=== PATIENT | male | born 1995 | race Caucasian/White ===

== ENCOUNTER 2017-09-06 02:07 | Observation (INO) | payer OTHER ==
[~2017-09-06] VITALS: Ht 177.8 cm; Wt 71.5 kg
[2017-09-06 06:02] VITALS: BP 116/55
[2017-09-06 07:37] VITALS: BP 111/53
[2017-09-06 07:43] LABS: HEMATOCRIT 39.5 % (38.0-50.0); HEMOGLOBIN 13.5 G/DL (12.5-16.6); MCH 30.5 PG (29.0-34.0); MCHC 34.2 G/DL (30.0-36.0); MCV 89.4 FL (86-99); PLATELET COUNT 256 K/uL (156-360); RBC DIS.WIDTH-CV 12.5 % (11.8-14.6); RBC DIS.WIDTH-SD 40.8 % (39-53); RED BLOOD COUNT 4.42 M/uL (4.00-5.50); WHITE BLOOD COUNT 15.1 K/uL (4.1-10.2)
[2017-09-06 08:21] LABS: CHLORIDE 105 MEQ/L (99-109); GFR ESTIMATE (CALCULATED) > 59 mL/min/ (58.99-99999); GLUCOSE 175 mg/dL (70-99); POTASSIUM 4.6 MEQ/L (3.7-5.4); SODIUM 139 MEQ/L (136-147); UREA NITROGEN (BUN) 14 mg/dL (9-23)
[2017-09-06] MEDS ORDERED: EPIPEN ADU0.3 MG/0.3 IM (11:26)
== END 2017-09-06 11:58 | disposition home or self-care (01) ==
LOC: EME 02:07 → EDOF 04:03 → ENRESERV 04:05 → CANRESERV 04:05 → ENRESERV 05:05 → EDOF 05:13 → ENRESERV 05:32 → 2EASTP 05:50
PROVIDERS: Hospitalist
DX: T78.05XA Anaphylactic reaction due to tree nuts and seeds, initial encounter (principal); C91.01 Acute lymphoblastic leukemia, in remission
CPT/HCPCS: 80048; 81003; 85027; 99281; 99285; G0378; J1100; J1200; J2405; J7030; J7512; S0028